=== PATIENT | female | born 1945 | race Caucasian/White ===

== ENCOUNTER → 2017-02-22 | Outpatient (CLI) | payer MEDICARE ==
--- NOTE | 2017-02-25 10:07 | MM ---
Reason for exam: screening (asymptomatic). Last mammogram was performed 1 year and 1 month ago. History: Patient is postmenopausal and history of other cancer. Excisional biopsy of the right breast, April 2007. Excisional biopsy of both breasts, 1969. Physical Findings: A clinical breast exam by your physician is recommended on an annual basis and results should be correlated with mammographic findings. MG Screening Mammo w CAD Bilateral CC and MLO view(s) were taken. XCCL view(s) were taken of the right breast. Prior study comparison: January 31, 2016, bilateral MG screening mammo w CAD. April 12, 2014, bilateral MG screening mammo w CAD. The breast tissue is heterogeneously dense. This may lower the sensitivity of mammography. Benign punctate and vascular calcifications. No significant changes when compared with prior studies. ASSESSMENT: Benign, BI-RAD 2 RECOMMENDATION: Routine screening mammogram of both breasts in 1 year.
== END | disposition home or self-care (01) ==
LOC: RADMAMWWP 15:01
PROVIDERS: ATTEND Internal Medicine
DX: Z12.31 Encounter for screening mammogram for malignant neoplasm of breast (principal)

== ENCOUNTER → 2017-03-26 | Outpatient (CLI) | payer MEDICARE ==
--- NOTE | 2017-03-27 01:45 | WWHP ---
[facility] - HISTORY AND PHYSICAL DATE OF SERVICE: 03/26/2017 Please have a copy sent to Dr. Esteban Gardner. CHIEF COMPLAINT: Patient is here for her routine gynecologic exam. HPI: This is a 71-year-old, G 3, P2-0-1-2 with an LMP of 1995. She is status post vaginal hysterectomy with bilateral salpingo-oophorectomy in 1995 for benign reasons. The patient is without gynecologic complaints. Her last pelvic exam was 1 year ago. PAST MEDICAL HISTORY: Atrial fibrillation and she is status post cardiac ablation and pacemaker placement. She also has elevated cholesterol osteopenia and von Willebrand's disease. She also has a history of skin cancer. Osteopenia. MEDS: 1. Eliquis 5 mg 2 daily. 2. Aspirin 81 mg daily. 3. Atorvastatin 10 mg, taken 3 times per week. 4. Estrace vaginal cream. Pea size amount to the vagina twice weekly. 5. Fish oil supplement daily. 6. Calcium 500 mg p.o. b.i.d. 7. Magnesium 250 mg daily. 8. Vitamin D 2000 units daily. 9. Calcium 99 mEq daily. 10.Vitamin E. 11.Vitamin C. 12.Vitamin B12 taken daily. 13.Acidophilus supplement daily. 14.Biotin supplement daily. ALLERGIES: SULFA WHICH CAUSES NAUSEA. PAST SURGICAL HISTORY: Tonsillectomy as a child. Breast biopsies, 1 from each breast in the past. Colonoscopy 2015 and this was her third one. PAST OB HISTORY: 2 vaginal deliveries and 1 spontaneous . 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 She has no history of STDs. SOCIAL HISTORY: She denies tobacco and drug use and has about 1 alcoholic drink every 3 months. She is a and is not sexually active. She goes to [place] during the winter months. FAMILY HISTORY: Mother had colon cancer. Father had lymphoma and several people had type 2 diabetes, including her mother brother and grandparents. REVIEW OF SYSTEMS: She denies respiratory or GI problems. Cardiac she has had some problems with atrial fibrillation. As above. She feels she has had some slight lightheadedness after her last pacemaker adjustment and she is following up with her divorce attorney for this. She denies maltreatment or falling. she states she does wear a pad because she occasionally has a small amount of urinary leakage but this is not a very big problem for her. PHYSICAL EXAM: Blood pressure 141/71, height 5 feet 8 inches, weight 128 pounds temperature 97.7, pulse is 70, this is a well-developed, well-nourished, white female, who is alert and oriented x3. In no acute distress. HEENT: Within normal limits. NECK: Supple without mass or thyromegaly. Chest. LUNGS: Clear to auscultation. HEART: Regular rate and rhythm. Breasts are without mass or discharge. Axillary exam is negative for adenopathy. Back negative for CVA tenderness. ABDOMEN: Soft, nontender, without palpable masses. Pelvic exam external genitalia reveals [id number] atrophy without lesions. Vagina reveals [id number] atrophy without lesions. There is no evidence of prolapse. Bimanual exam is negative for mass or tenderness. Rectovaginal exam is negative for mass or tenderness and is negative for occult blood. EXTREMITIES: Nontender. IMPRESSION: 1. 71-year-old, menopausal female, status post vaginal hysterectomy with BSO in the past for benign reasons. With normal gynecologic exam. 2. Mildly elevated blood pressure. PLAN: 1. Pap smears have been discontinued. 2. Self breast examination was discussed. 3. Mammogram was recently done on 02/22/2017 and was benign. She will repeat this in 1 year. 4. We have discussed elevated blood pressure. She states she will do home blood pressure checks and follow up with Dr. Gardner for blood pressure elevations. 5. She would like to continue Estrace vaginal cream for vaginal dryness which she will use up to 1-2 g intravaginally twice weekly. 6. She does get flu shots in the fall and will get this when available. 7. Osteoporosis prevention was discussed. She did show me a bone density test done on 03/21/2016 which showed osteopenia. She will plan on repeating this in [address] Gardner as she has done in the past. 8. She will return in 1 year. MMODL / IJN: [id number] / MTDNeo
== END | disposition home or self-care (01) ==
LOC: WWCWWP 10:14
PROVIDERS: ATTEND Obstetrics & Gynecology
DX: Z01.419 Encounter for gynecological examination (general) (routine) without abnormal findings (principal)

== ENCOUNTER → 2018-04-01 | Outpatient (CLI) | payer MEDICARE ==
[2018-04-01 10:18] VITALS: BP 120/75; PULSE 70; TEMP 97.9
--- NOTE | 2018-04-01 10:56 | P.HPOB ---
History of Present Illness H&P Date: 04/01/18 Chief Complaint: The patient is here for her routine gynecologic exam and mammogram. This is a 72 year old with an LMP of 1995. Patient is status post vaginal hysterectomy and BSO in 1995 for benign reasons. The patient is without gynecologic complaints. Review of Systems Weight has been stable. She denies respiratory, cardiac and G.I. problems. She denies maltreatment or problems with falling. : she denies any significant problems with urinary leakage, but does wear a small pad. Past Medical History Past Medical History: Atrial Fibrillation (Previous ablation and has a pacemaker ), Blood Disorder (HISTORY OF VON WILLEBRAND DISEASE,), Cancer (Skin cancer), Hyperlipidemia, Osteoarthritis (OA) Additional Past Medical History / Comment(s): osteopenia. 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 History of Any Multi-Drug Resistant Organisms: None Reported Past Surgical History: Heart Catheterization, Heart Catheterization With Stent, Pacemaker Past Anesthesia/Blood Transfusion Reactions: No Reported Reaction Date of Last Stent Placement:: JUL 2012 Type of Cardiac Device: Biventricular Pacemaker Device Placement Date:: march 2015 Past Psychological History: No Psychological Hx Reported Smoking Status: Never smoker Past Alcohol Use History: Rare (0-1 per month) Past Drug Use History: None Reported Additional History: She is a and is not sexually active. She goes to [place] during the winter months. - Past Family History Father Family Medical History: Cancer (Lymphoma) Mother Family Medical History: Cancer (colon), Diabetes Mellitus Brother(s) Family Medical History: Diabetes Mellitus Medications and Allergies Home Medications Medication Instructions Recorded Confirmed Type Aspirin 81 mg PO DAILY 01/19/14 01/19/15 History Atorvastatin Calcium [Lipitor] 10 mg PO DIRECTED 01/19/14 04/01/18 History Apixaban [Eliquis] 2.5 mg PO BID 01/18/15 04/01/18 History Ascorbic Acid [Vitamin C] 500 mg PO BID 01/18/15 01/19/15 History Calcium Carbonate [Calcium] 600 mg PO BID 01/18/15 01/19/15 History Cholecalciferol [Vitamin D3] 2,000 unit PO DAILY@1200 01/18/15 04/01/18 History Magnesium Gluconate [Magonate] 500 mg PO DAILY 01/18/15 04/01/18 History [place]-3 Fatty Acids/Fish Oil [Fish 1 each PO BID 01/18/15 04/01/18 History Oil 1,000 mg Softgel] Vitamin E 500 mg PO ONCE 01/18/15 04/01/18 History Allergies Allergy/AdvReac Type Severity Reaction Status Date / Time denosumab [From Prolia] AdvReac Nausea & Verified 04/01/18 10:45 Vomiting Sulfa (Sulfonamide AdvReac Nausea & Verified 04/01/18 10:45 Antibiotics) Vomiting Exam Vital Signs Temp Pulse BP 04/01/18 10:10 97.9 F 70 120/75 Height 5'8", weight 130 pounds, BMI 20 This is a well-developed well-nourished white female who is alert and oriented times 3 in no acute distress. HEENT: Within normal limits. NECK: Supple without mass or thyromegaly. CHEST AND LUNGS: Clear to auscultation. HEART: Regular rate and rhythm. BREASTS: Are without mass or discharge. AXILLARY EXAM: Negative for adenopathy. BACK: Negative for CVA tenderness. ABDOMEN: Soft, nontender, without palpable masses. PELVIC EXAM: External genitalia appears normal with mild to moderate atrophy. Vagina appears normal with mild to moderate atrophy. There is no evidence of prolapse. Bimanual examination is negative for mass or tenderness. RECTAL EXAM: Rectovaginal exam is negative for mass or tenderness and is negative for occult blood. EXTREMITIES: Nontender. IMPRESSION: 1. 72-year-old menopausal female status post vaginal hysterectomy and BSO for benign reasons. 2. History of osteopenia. PLAN: 1. Pap smears have been discontinued. 2. Self breast awareness was discussed with the patient. 3. Screening mammogram will be done today. 4. Osteoporosis prevention was discussed. 5. She continues to use Estrace vaginal cream to the introitus. She will use up to 1 g twice weekly. The prescription will be sent to [facility] pharmacy in [place]. 6. She is to get her flu shot in the near future. 7. She will return one year.
--- NOTE | 2018-04-01 15:15 | BD ---
EXAMINATION TYPE: Axial Bone Density DATE OF EXAM: 04/01/2018 COMPARISON:2000 CLINICAL HISTORY: post menopausal, Z 78.0 Height: 5 '7 1/2 Weight: 129 FRAX RISK QUESTIONS: Secondary Osteoporosis: RISK FACTORS HISTORY OF: Family History of Osteoporosis: y Postmenopausal woman: y MEDICATIONS: Additional Medications: blood thinner, pacemaker, aspirin, cholesterol Additional History: EXAM MEASUREMENTS: Bone mineral densitometry was performed using the [employer] System. Bone mineral density as measured about the Lumbar spine is: ----- L1-L4(G/cm2): 1.161 T Score Values are as follows: ----- L2: -0.7 ----- L3: 0.1 ----- L4: 0.4 ----- L1-L4: -0.2 Bone mineral density has: Decreased -10.1% since study of: Bone mineral density about the R hip (g/cm2): 0.674 Bone mineral density about the L hip (g/cm2): 0.784 T Score values are as follows: -----R Neck: -2.6 -----L Neck: -1.8 -----R Total: -2.2 -----L Total: -1.4 Bone mineral density has: Decreased -9.6% since study of: 12/02/2000 IMPRESSION: Osteoporosis (T Score less than -2.5). There is increased fracture risk and therapy is usually indicated based on age. Re-Screen 1-2 years. NOTE: T-SCORE=SD OF THE YOUNG ADULT MEAN.
--- NOTE | 2018-04-02 11:56 | MM ---
Reason for exam: screening (asymptomatic). Last mammogram was performed 1 year and 1 month ago. History: Patient is postmenopausal and history of other cancer. Excisional biopsy of the right breast, April 2007. Excisional biopsy of both breasts, 1969. Physical Findings: A clinical breast exam by your physician is recommended on an annual basis and results should be correlated with mammographic findings. MG Screening Mammo w CAD Bilateral CC, MLO, and XCCL view(s) were taken. Prior study comparison: February 22, 2017, bilateral MG screening mammo w CAD. January 31, 2016, bilateral MG screening mammo w CAD. The breast tissue is heterogeneously dense. This may lower the sensitivity of mammography. There are benign appearing vascular calcifications bilaterally and benign round calcifications in the right breast. There is no discrete abnormality. ASSESSMENT: Benign, BI-RAD 2 RECOMMENDATION: Routine screening mammogram of both breasts in 1 year.
--- NOTE | 2018-04-08 07:52 | P.PN ---
Progress Note - Text Progress Note Date: 04/08/18 The patient called on 04/04/2018. She requested that her prescription be changed from Estrace vaginal cream to Premarin vaginal cream because of her insurance coverage. This change was sent electronically to [facility] pharmacy in [place]. The prescriptions for Premarin vaginal cream, one tube, 1 g vaginally twice weekly. 3 refills were given.
--- NOTE | 2018-04-09 10:20 | P.PN ---
Progress Note - Text Progress Note Date: 04/09/18 OUTPATIENT FOLLOW-UP NOTE TEST(S)/RESULTS: bone density test from 04/01/2018 shows osteoporosis of the right hip with a T score of -2.6. METHOD OF NOTIFICATION: patient was notified by phone. PATIENT COMMENTS: the patient understands the results. In his unsure if she would want to start medication for this at this time. DIAGNOSIS: osteoporosis DISCUSSION: we've had a long discussion regarding osteoporosis and the increased risk for fracture. We discussed pharmaceutical options including bisphosphonates, Evista, and Prolia. She took Prolia in the past and she states it made her sick for 2 months. We discussed pros and cons of bisphosphonates including possible increased risk for esophageal ulcers and osteonecrosis of the jaw with dental or jaw surgery. We also discussed possible increased risk of atypical femur fractures. We discussed possible increased risk for blood clots with Evista. After long discussion, I do think she would be a good candidate for Fosamax. Information on Fosamax, the ACOG handout on osteoporosisFAQ 048 and a copy of the bone density tests will be sent to the patient. PLAN: the patient will call if she has any questions. She would like to proceed with Fosamax, we will obtain a blood creatinine and serum calcium level , if not already done by Dr. Gardner.
== END ==
LOC: WWCWWP 09:49
PROVIDERS: ATTEND Obstetrics & Gynecology
DX: Z12.31 Encounter for screening mammogram for malignant neoplasm of breast (principal); M81.0 Age-related osteoporosis without current pathological fracture; Z78.0 Asymptomatic menopausal state
CPT/HCPCS: 77067; 77080

== ENCOUNTER → 2019-04-07 | Outpatient (CLI) | payer MEDICARE ==
[2019-04-07 08:46] VITALS: BP 151/86; PULSE 71; RESP 18; TEMP 97.9
--- NOTE | 2019-04-07 09:36 | P.HPOB ---
History of Present Illness H&P Date: 04/07/19 Chief Complaint: The patient is here for her routine gynecologic exam and ma mmogram. This is a 73 year old with an LMP of 1995. The patient is status post vaginal hysterectomy with BSO in 1995 for benign reasons. The patient states she has been noticing some right breast pressure without palpable mass. She denies any nipple leakage. Last year she was found to have osteoporosis in the hip and was offered medication to help strengthen bones. After reading info rmation about the medication, she has chosen to go without the medication. She has been using Happy PMS cream and had a trial off of it earlier this year, but she started having hot flashes so she started it again with improvement of her symptoms. She also had a trial off of estrogen cream which she has used to the vulva area and she started noticing more irritation, so she restarted the cream. She is not sexually active. Review of Systems Her weight has been stable. She denies respiratory, cardiac and G.I. problems. She denies maltreatment or problems with falling. : occasional small leakage requiring a pad, but this is not a big problem for her. Past Medical History Past Medical History: Atrial Fibrillation, Blood Disorder, Cancer, Hyperlipidemia, Osteoarthritis (OA) Additional Past Medical History / Comment(s): She has a pacemaker. History of von Willebrand's disease. Skin cancer. Osteoporosis. 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 History of Any Multi-Drug Resistant Organisms: None Reported Past Surgical History: Heart Catheterization, Heart Catheterization With Stent, Pacemaker Additional Past Surgical History / Comment(s): Colonoscopy 2012(3rd) Past Anesthesia/Blood Transfusion Reactions: No Reported Reaction Date of Last Stent Placement:: JUL 2012 Type of Cardiac Device: Biventricular Pacemaker Device Placement Date:: march 2015 Past Psychological History: No Psychological Hx Reported Smoking Status: Never smoker Past Alcohol Use History: Rare (2 or 3 per year) Past Drug Use History: None Reported Additional History: She is a and is not sexually active. She goes to [place] during the winter months. - Past Family History Father Family Medical History: Cancer Additional Family Medical History / Comment(s): Lymphoma. Mother Family Medical History: Cancer, Diabetes Mellitus Additional Family Medical History / Comment(s): Colon cancer. Brother(s) Family Medical History: Diabetes Mellitus Medications and Allergies Home Medications Medication Instructions Recorded Confirmed Type Aspirin 81 mg PO DAILY 01/19/14 04/07/19 History Atorvastatin Calcium [Lipitor] 10 mg PO DIRECTED 01/19/14 04/07/19 History Apixaban [Eliquis] 2.5 mg PO BID 01/18/15 04/07/19 History Ascorbic Acid [Vitamin C] 500 mg PO BID 01/18/15 04/07/19 History Calcium Carbonate [Calcium] 600 mg PO BID 01/18/15 04/07/19 History Cholecalciferol [Vitamin D3 (25 2,000 unit PO DAILY@1200 01/18/15 04/07/19 History Mcg = 1000 Iu)] Magnesium Gluconate [Magonate] 500 mg PO DAILY 01/18/15 04/07/19 History [place]-3 Fatty Acids/Fish Oil [Fish 1 each PO BID 01/18/15 04/07/19 History Oil 1,000 mg Softgel] Vitamin E 500 mg PO ONCE 01/18/15 04/07/19 History Estradiol Cream [Estrace Cream 1 gm VAGINAL DIRECTED #1 tube 04/08/1803/16 Rx 0.01%] Cyanocobalamin/Cobamamide [Vitamin 1 each SL DAILY 04/07/19 04/07/19 History B-12 5,000 Mcg Tab Sl] Ferrous Sulfate [Iron] 325 mg PO MOWEFR 04/07/19 04/07/19 History Happy Pms Cream 1 cream TOPICAL DAILY 04/07/19 04/07/19 History Potassium 99 mg PO DAILY 04/07/19 04/07/19 History Ubidecarenone [Co Q-10] 100 mg PO DAILY 04/07/19 04/07/19 History Allergies Allergy/AdvReac Type Severity Reaction Status Date / Time denosumab [From Prolia] AdvReac Nausea & Verified 04/07/19 08:46 Vomiting Sulfa (Sulfonamide AdvReac Nausea & Verified 04/07/19 08:46 Antibiotics) Vomiting Exam Vital Signs Temp Pulse Resp BP Pulse Ox 04/07/19 08:36 97.9 F 71 18 151/86 98 Intake and Output 04/06/19 04/07/19 04/07/19 22:59 06:59 14:59 Other: Weight 59.874 kg Height 5'8", weight 132 pounds, BMI 20.1. This is a well-developed well-nourished white female who is alert and oriented times 3 in no acute distress. HEENT: Within normal limits. NECK: Supple without mass or thyromegaly. CHEST AND LUNGS: Clear to auscultation. HEART: Regular rate and rhythm. BREASTS: Are without mass or discharge. The breasts are nontender at this time. AXILLARY EXAM: Negative for adenopathy. BACK: Negative for CVA tenderness. ABDOMEN: Soft, nontender, without palpable masses. PELVIC EXAM: External genitalia appears normal with mild to moderate atrophy. Vagina appears normal with mild to moderate atrophy. There is no evidence of prolapse. Bimanual examination is negative for mass or tenderness. RECTAL EXAM: Rectovaginal exam is negative for mass or tenderness and is negative for occult blood. EXTREMITIES: Nontender. IMPRESSION: 1. 73 year old menopausal females who is status post vaginal hysterectomy with BSO for benign reasons. Normal gynecologic exam. 2. Osteoporosis declining prescription medication. 3. Genital atrophy with irritation that was improved with Estrace vaginal cream. PLAN: 1. Pap smears have been discontinued. 2. Self breast awareness was discussed with the patient. 3. Screening mammogram will be done today. 4. Osteoporosis management was discussed. I have stressed the importance of adequate calcium, vitamin D and regular exercise. Recommended amounts of calcium and vitamin D were also discussed. We again have discussed medications which she is declining at this time. We will plan on repeating bone density testing in one year. 5. Continue Estrace vaginal cream to the genital region. The electronic prescription will be sent to [facility] pharmacy in [facility]. 6. She plans to get a flu shot in the near future. 7. She was advised to return in one year for her annual well woman exam.
--- NOTE | 2019-04-07 10:34 | MM ---
Reason for exam: additional evaluation requested from prior study. Last mammogram was performed 1 year ago. History: Patient is postmenopausal and history of other cancer. Excisional biopsy of the right breast, April 2007. Excisional biopsy of both breasts, 1969. Took estrogen for 12 years beginning at age 52. Physical Findings: Dr. Murray did breast exam. MG 3D Diag Mammo W/Cad JESSI Bilateral CC and MLO view(s) were taken. LM, spot compression MLO, and spot compression CC view(s) were taken of the left breast. Prior study comparison: April 01, 2018, bilateral MG screening mammo w CAD. February 22, 2017, bilateral MG screening mammo w CAD. The breast tissue is heterogeneously dense. This may lower the sensitivity of mammography. 5mm left upper outer quadrant focal asymmetry 1.5-2cm from nipple, on spot compression views this resolves and appears as fibroglandular tissue. These results were verbally communicated with the patient and result sheet given to the patient on 04/07/19. ASSESSMENT: Benign, BI-RAD 2 RECOMMENDATION: Routine screening mammogram of both breasts in 1 year. Manage on a clinical basis with regard to intermittent left breast nonfocal pain.
== END | disposition home or self-care (01) ==
LOC: WWCWWP 08:24
PROVIDERS: ATTEND Obstetrics & Gynecology
DX: N64.4 Mastodynia (principal); Z90.710 Acquired absence of both cervix and uterus
CPT/HCPCS: 77066; G0279; 77062

== ENCOUNTER → 2020-03-31 | Outpatient (CLI) | payer MEDICARE ==
--- NOTE | 2020-03-31 13:35 | BD ---
EXAMINATION TYPE: Axial Bone Density DATE OF EXAM: 03/31/2020 COMPARISON: 04.01.2018 CLINICAL HISTORY: 74 YR OLD FEMALE......ICD-10 CODE: Z78.0 POST MENOPAUSAL Height: 66.4 Weight: 130 FRAX RISK QUESTIONS: NOTHING ADDITIONAL TO NOTE HERE RISK FACTORS HISTORY OF: Active: YES Postmenopausal woman: YES, AT 52 YR OLD Take estrogen and/or progesterone medications: NOT FOR LAST 10 YRS, TOOK IN PAST FOR ABOUT 15 YRS Lost more than 2 inches in height since high school: YES, CLAIMS 69" IN PAST Hyperparathyroidism: NO Adrenal Insufficiency: NO MEDICATIONS: Osteoporosis Medications: TRIED PROLIA, UNABLE TO TAKE Additional Medications: BP MEDS, STATIN FOR CHOLESTEROL, VIT D AND CALCIUM Additional History: HYPERTENSION CHOLESTEROL EXAM MEASUREMENTS: Bone mineral densitometry was performed using the [employer] System. Bone mineral density as measured about the Lumbar spine is: ----- L1-L4(G/cm2): 1.167 T Score Values are as follows: ----- L1: -1.0 ----- L2: -0.8 ----- L3: 0.4 ----- L4: 0.5 ----- L1-L4: -0.1 Bone mineral density has: Increased 1.1% since study of: 04.01.2018 Bone mineral density about the R hip (g/cm2): 0.718 Bone mineral density about the L hip (g/cm2): 0.793 T Score values are as follows: -----R Neck: -2.7 -----L Neck: -1.7 -----R Total: -2.3 -----L Total: -1.7 Bone mineral density has: Decreased -3.8% since study of: 04.01.2018 FRAX%s: THERE IS A 17.0% CHANCE FOR A MAJOR OSTEOPOROTIC FX AND A 6.3% FOR HIP....PROBABILITY FOR F X IN 10 YRS TIME IMPRESSION: Osteopenia NOTE: T-SCORE=SD OF THE YOUNG ADULT MEAN.
== END | disposition home or self-care (01) ==
LOC: RADBDWWP 12:25
PROVIDERS: ATTEND Obstetrics & Gynecology
DX: M85.80 Other specified disorders of bone density and structure, unspecified site (principal); Z78.0 Asymptomatic menopausal state
CPT/HCPCS: 77080

== ENCOUNTER → 2020-04-13 | Outpatient (CLI) | payer MEDICARE ==
[2020-04-13 09:40] VITALS: BP 136/83; PULSE 68; RESP 18; TEMP 98.3
--- NOTE | 2020-04-13 10:53 | P.HPOB ---
History of Present Illness H&P Date: 04/13/20 Chief Complaint: The patient is here for her routine gynecologic exam and ma mmogram. This is a 74-year-old 011 with an LMP of 1995. The patient is status post vaginal hysterectomy with BSO in 1995 for benign reasons. The patient still has some occasional hot flashes and night sweats but is tolerable. The patient had a recent bone density test earlier this month showing osteopenia and she is interested in starting medication for this. She is without other complaints. Review of Systems Weight has been stable. She denies respiratory, cardiac and G.I. problems. She denies maltreatment or problems with falling. : She has an occasional slight leakage and does wear a panty liner because of this. This is not a major problem for her. Past Medical History Past Medical History: Atrial Fibrillation, Blood Disorder, Cancer, Hyperlipidemia, Osteoarthritis (OA) Additional Past Medical History / Comment(s): She has a pacemaker. History of von Willebrand's disease. Skin cancer. Osteoporosis. 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 History of Any Multi-Drug Resistant Organisms: None Reported Past Surgical History: Heart Catheterization, Heart Catheterization With Stent, Pacemaker Additional Past Surgical History / Comment(s): Colonoscopy 2019 for GI bleed (negative). Past Anesthesia/Blood Transfusion Reactions: No Reported Reaction Date of Last Stent Placement:: JUL 2012 Type of Cardiac Device: Biventricular Pacemaker Device Placement Date:: march 2015 Past Psychological History: No Psychological Hx Reported Smoking Status: Never smoker Past Alcohol Use History: Rare (2 or 3 per year) Past Drug Use History: None Reported Additional History: She is a and is not seeing anybody at this time and is not sexually active. She goes to [place] during the winter. - Past Family History Father Family Medical History: Cancer Additional Family Medical History / Comment(s): Lymphoma. Mother Family Medical History: Cancer, Diabetes Mellitus Additional Family Medical History / Comment(s): Colon cancer. Brother(s) Family Medical History: Diabetes Mellitus Medications and Allergies Home Medications Medication Instructions Recorded Confirmed Type Aspirin 81 mg PO DAILY 01/19/14 04/13/20 History Atorvastatin Calcium [Lipitor] 10 mg PO DIRECTED 01/19/14 04/13/20 History Ascorbic Acid [Vitamin C] 500 mg PO BID 01/18/15 04/13/20 History Calcium Carbonate [Calcium] 600 mg PO BID 01/18/15 04/13/20 History Cholecalciferol [Vitamin D3 (25 2,000 unit PO DAILY@1200 01/18/15 04/13/20 History Mcg = 1000 Iu)] Magnesium Gluconate [Magonate] 500 mg PO DAILY 01/18/15 04/13/20 History [place]-3 Fatty Acids/Fish Oil [Fish 1 each PO BID 01/18/15 04/13/20 History Oil 1,000 mg Softgel] Vitamin E 500 mg PO ONCE 01/18/15 04/13/20 History Cyanocobalamin/Cobamamide [Vitamin 1 each SL DAILY 04/07/19 04/13/20 History B-12 5,000 Mcg Tab Sl] Estradiol Cream [Estrace Cream 1 gm VAGINAL DIRECTED #1 tube 04/07/19 04/13/20 Rx 0.01%] Happy Pms Cream 1 cream TOPICAL DAILY 04/07/19 04/13/20 History Potassium 99 mg PO DAILY 04/07/19 04/13/20 History Ubidecarenone [Co Q-10] 100 mg PO DAILY 04/07/19 04/13/20 History Biotin 5,000 mcg PO DAILY 04/13/20 04/13/20 History Zinc 50 mg PO DAILY 04/13/20 04/13/20 History amLODIPine BESYLATE [Norvasc] 2.5 mg PO DAILY 04/13/20 04/13/20 History Allergies Allergy/AdvReac Type Severity Reaction Status Date / Time denosumab [From Prolia] AdvReac Nausea & Verified 04/13/20 09:25 Vomiting Sulfa (Sulfonamide AdvReac Nausea & Verified 04/13/20 09:25 Antibiotics) Vomiting Exam Vital Signs Temp Pulse Resp BP Pulse Ox 04/13/20 09:35 98.3 F 68 18 136/83 98 Intake and Output 04/12/20 04/13/20 04/13/20 22:59 06:59 14:59 Other: Weight 60.328 kg Height 5 feet 8 inches, weight 133 pounds, BMI 20.2. This is a well-developed well-nourished white female who is alert and oriented times 3 in no acute distress. HEENT: Within normal limits. NECK: Supple without mass or thyromegaly. CHEST AND LUNGS: Clear to auscultation. HEART: Regular rate and rhythm. BREASTS: Are without mass or discharge. AXILLARY EXAM: Negative for adenopathy. BACK: Negative for CVA tenderness. ABDOMEN: Soft, nontender, without palpable masses. PELVIC EXAM: External genitalia appears normal with mild to moderate atrophy. Vagina appears normal with mild to moderate atrophy. There is no evidence of prolapse. Bimanual examination is negative for mass or tenderness. RECTAL EXAM: Rectovaginal exam is negative for mass or tenderness and is negative for occult blood. EXTREMITIES: Nontender. IMPRESSION: 1. 74-year-old menopausal female status post vaginal hysterectomy with BSO with normal gynecologic exam. 2. History of osteoporosis PLAN: 1. Pap smears have been discontinued. 2. Self breast awareness was discussed with the patient. 3. Screening mammogram will be done today. 4. Osteoporosis management was discussed. I have stressed the importance of adequate calcium, vitamin D and regular exercise. Recommended amounts of calcium and vitamin D were also discussed. After reviewing her bone density testing from 03/31/2020, she would like to proceed with medication for osteoporosis. We have again reviewed possible risks including osteonecrosis of the jaw. She states she does not have any upcoming oral surgery or jaw surgery. We have discussed how to take the medication and she understands she should read instructions prior to taking it. She recently had blood screening test done through her PCP. She will see if a serum creatinine and serum calcium were drawn. She will have this sent to me. If it was not drawn she will call and I can order it for her. If these are normal, she will be started on Fosamax 70 mg by mouth every week. 5. The patient was advised to return in 1-2 years for her well woman examination.
--- NOTE | 2020-04-14 11:01 | MM ---
Reason for exam: screening (asymptomatic). Last mammogram was performed 1 year ago. History: Patient is postmenopausal and history of other cancer. Excisional biopsy of the right breast, April 2007. Excisional biopsy of both breasts, 1969. Took estrogen for 12 years beginning at age 52. Physical Findings: A clinical breast exam by your physician is recommended on an annual basis and results should be correlated with mammographic findings. MG 3D Screening Mammo W/Cad Bilateral CC and MLO view(s) were taken. XCCL view(s) were taken of the right breast. Prior study comparison: April 07, 2019, bilateral MG 3d diag mammo w/cad JESSI. April 01, 2018, bilateral MG screening mammo w CAD. The breast tissue is heterogeneously dense. This may lower the sensitivity of mammography. Stable benign calcifications. There is no discrete abnormality. No significant changes when compared with prior studies. ASSESSMENT: Benign, BI-RAD 2 RECOMMENDATION: Routine screening mammogram of both breasts in 1 year.
== END | disposition home or self-care (01) ==
LOC: WWCWWP 09:17
PROVIDERS: ATTEND Obstetrics & Gynecology
DX: Z12.31 Encounter for screening mammogram for malignant neoplasm of breast (principal)
CPT/HCPCS: 77063; 77067

== ENCOUNTER 2022-01-10 11:51 | Emergency (ER) | payer MEDICARE ==
[2022-01-10 12:00] VITALS: PULSE 70; RESP 18; TEMP 98.1
[2022-01-10 12:50] LABS: Basophils % (A) 0 %; Eosinophils % (A) 1 %; HCT 41.1 % (34.0-46.0); HGB 13.4 gm/dL (11.4-16.0); Lymphocytes # (A) 0.8 k/uL (1.0-4.8); Lymphocytes % (A) 12 %; MCH 31.5 pg (25.0-35.0); MCHC 32.5 g/dL (31.0-37.0); Mean Platelet Volume 9.1; Monocytes # (A) 0.3 k/uL (0-1.0); Monocytes % (A) 5 %; Neutrophils # (A) 4.9 k/uL (1.3-7.7); Neutrophils % (A) 79 %; Platelet Count 108 k/uL (150-450); RBC 4.23 m/uL (3.80-5.40); RDW 12.8 % (11.5-15.5); WBC 6.2 k/uL (3.8-10.6)
--- NOTE | 2022-01-10 12:52 | ED ---
General Adult HPI - General Chief complaint: Arrhythmia/Palpitations Stated complaint: Abnormal EKG Time Seen by Provider: 01/10/22 11:59 Source: patient, RN notes reviewed, old records reviewed Mode of arrival: ambulatory Limitations: no limitations - History of Present Illness Initial comments: 76-year-old female who presents for evaluation of palpitation. Patient had been seen for health visit with her primary care provider and had indicated that she had had some palpitations over the past one week. EKG was performed and the patient was sent to the emergency department for evaluation. She has history of atrial fibrillation status post ablation and pacemaker placement. She is currently on atorvastatin and amlodipine. She denies associated chest pain. Denies cough or fever. Denies abdominal pain. She states the palpitations are intermittent. - Related Data Home Medications Medication Instructions Recorded Confirmed Aspirin 81 mg PO DAILY 01/19/14 04/13/20 Atorvastatin Calcium [Lipitor] 10 mg PO DIRECTED 01/19/14 04/13/20 Ascorbic Acid [Vitamin C] 500 mg PO BID 01/18/15 04/13/20 Calcium Carbonate [Calcium] 600 mg PO BID 01/18/15 04/13/20 Cholecalciferol [Vitamin D3 (25 2,000 unit PO DAILY@1200 01/18/15 04/13/20 Mcg = 1000 Iu)] Magnesium Gluconate [Magonate] 500 mg PO DAILY 01/18/15 04/13/20 [place]-3 Fatty Acids/Fish Oil [Fish 1 each PO BID 01/18/15 04/13/20 Oil 1,000 mg Softgel] Vitamin E (Dl,Tocopheryl Acet) 500 mg PO ONCE 01/18/15 04/13/20 [Vitamin E] Cyanocobalamin/Cobamamide [Vitamin 1 each SL DAILY 04/07/19 04/13/20 B-12 5,000 Mcg Tab Sl] Happy Pms Cream 1 cream TOPICAL DAILY 04/07/19 04/13/20 Potassium 99 mg PO DAILY 04/07/19 04/13/20 Ubidecarenone [Co Q-10] 100 mg PO DAILY 04/07/19 04/13/20 Biotin [Biotin Disolve] 5,000 mcg PO DAILY 04/13/20 04/13/20 Zinc 50 mg PO DAILY 04/13/20 04/13/20 amLODIPine BESYLATE [Norvasc] 2.5 mg PO DAILY 04/13/20 04/13/20 Previous Rx's Medication Instructions Recorded Estradiol Cream [Estrace Cream 1 gm VAGINAL DIRECTED #1 tube 04/07/19 0.01%] Alendronate Sodium 70 mg PO WEEKLY #12 tab 04/27/20 Allergies Allergy/AdvReac Type Severity Reaction Status Date / Time denosumab [From Prolia] AdvReac Nausea & Verified 01/10/22 13:40 Vomiting Sulfa (Sulfonamide AdvReac Nausea & Verified 01/10/22 13:40 Antibiotics) Vomiting Review of Systems ROS Statement: Those systems with pertinent positive or pertinent negative responses have been documented in the HPI. ROS Other: All systems not noted in ROS Statement are negative. Past Medical History Past Medical History: Atrial Fibrillation, Blood Disorder, Cancer, Hyperlipidemia, Osteoarthritis (OA) Additional Past Medical History / Comment(s): She has a pacemaker. History of von Willebrand's disease. Skin cancer. Osteoporosis. 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 History of Any Multi-Drug Resistant Organisms: None Reported Past Surgical History: Heart Catheterization, Heart Catheterization With Stent, Pacemaker Additional Past Surgical History / Comment(s): Colonoscopy 2019 for GI bleed (negative). Past Anesthesia/Blood Transfusion Reactions: No Reported Reaction Date of Last Stent Placement:: JUL 2012 Type of Cardiac Device: Biventricular Pacemaker Device Placement Date:: march 2015 Past Psychological History: No Psychological Hx Reported Smoking Status: Never smoker Past Alcohol Use History: Rare Past Drug Use History: None Reported - Past Family History Father Family Medical History: Cancer Additional Family Medical History / Comment(s): Lymphoma. Mother Family Medical History: Cancer, Diabetes Mellitus Additional Family Medical History / Comment(s): Colon cancer. Brother(s) Family Medical History: Diabetes Mellitus General Exam Limitations: no limitations General appearance: alert, in no apparent distress Head exam: Present: atraumatic, normocephalic Eye exam: Present: normal appearance, PERRL ENT exam: Present: normal exam Neck exam: Present: normal inspection. Absent: tenderness, meningismus Respiratory exam: Present: normal lung sounds bilaterally. Absent: respiratory distress, wheezes Cardiovascular Exam: Present: regular rate, normal rhythm GI/Abdominal exam: Present: soft. Absent: distended, tenderness, guarding Extremities exam: Present: normal inspection, normal capillary refill. Absent: pedal edema, joint swelling, calf tenderness Neurological exam: Present: alert, oriented X3, CN II-XII intact. Absent: motor sensory deficit Psychiatric exam: Present: normal affect, normal mood Skin exam: Present: warm, dry, intact. Absent: cyanosis, diaphoretic Course Vital Signs 01/10/22 11:54 Temperature 98.1 F Pulse Rate 70 Respiratory 18 Rate Blood Pressure 144/82 O2 Sat by Pulse 99 Oximetry EKG Findings - EKG Comments: EKG Findings:: Electronic paced rhythm rate of 70, [place] interval 198, QRS duration 165, QTC 480 Medical Decision Making - Medical Decision Making 68-year-old female presents for evaluation of palpitation. Patient was sent in by primary care physician for evaluation. She has history of atrial fibrillation status post pacemaker. She states she is in a paced rhythm 100% of the time. Spent about 7 years since she has had her current pacemaker in. She denies associated chest pain. No cough or dyspnea. Palpitations are intermittent. While in the emergency department she did have a witnessed PVC although this was not captured on EKG. EKG shows dual-chamber pacemaker. Vital signs are stable emergency prompt. She hasn't normal CBC with the exception of a mild frontal cytopenia. She has normal electrolytes. Negative troponin. Chest x-ray is clear. 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 Stable For discharge - Lab Data Result diagrams: 01/10/22 12:36 01/10/22 12:36 Lab Results 01/10/22 01/10/22 01/10/22 Range/Units 12:36 12:36 12:36 WBC 6.2 (3.8-10.6) k/uL RBC 4.23 (3.80-5.40) m/uL Hgb 13.4 (11.4-16.0) gm/dL Hct 41.1 (34.0-46.0) % MCV 97.0 (80.0-100.0) fL MCH 31.5 (25.0-35.0) pg MCHC 32.5 (31.0-37.0) g/dL RDW 12.8 (11.5-15.5) % Plt Count 108 L (150-450) k/uL MPV 9.1 Neutrophils % 79 % Lymphocytes % 12 % Monocytes % 5 % Eosinophils % 1 % Basophils % 0 % Neutrophils # 4.9 (1.3-7.7) k/uL Lymphocytes # 0.8 L (1.0-4.8) k/uL Monocytes # 0.3 (0-1.0) k/uL Eosinophils # 0.0 (0-0.7) k/uL Basophils # 0.0 (0-0.2) k/uL PT 10.7 (9.0-12.0) sec INR 1.0 (<1.2) APTT 25.3 (22.0-30.0) sec Sodium 140 (137-145) mmol/L Potassium 3.7 (3.5-5.1) mmol/L Chloride 104 (98-107) mmol/L Carbon Dioxide 29 (22-30) mmol/L Anion Gap 7 mmol/L BUN 16 (7-17) mg/dL Creatinine 0.79 (0.52-1.04) mg/dL Est GFR (CKD-EPI)AfAm 84 (>60 ml/min/1.73 sqM) Est GFR (CKD-EPI)NonAf 73 (>60 ml/min/1.73 sqM) Glucose 99 (74-99) mg/dL Calcium 9.3 (8.4-10.2) mg/dL Magnesium 2.2 (1.6-2.3) mg/dL Total Bilirubin 0.5 (0.2-1.3) mg/dL AST 36 (14-36) U/L ALT 23 (4-34) U/L Alkaline Phosphatase 91 (38-126) U/L Troponin I (0.000-0.034) ng/mL Total Protein 7.3 (6.3-8.2) g/dL Albumin 4.5 (3.5-5.0) g/dL 01/10/22 Range/Units 12:36 WBC (3.8-10.6) k/uL RBC (3.80-5.40) m/uL Hgb (11.4-16.0) gm/dL Hct (34.0-46.0) % MCV (80.0-100.0) fL MCH (25.0-35.0) pg MCHC (31.0-37.0) g/dL RDW (11.5-15.5) % Plt Count (150-450) k/uL MPV Neutrophils % % Lymphocytes % % Monocytes % % Eosinophils % % Basophils % % Neutrophils # (1.3-7.7) k/uL Lymphocytes # (1.0-4.8) k/uL Monocytes # (0-1.0) k/uL Eosinophils # (0-0.7) k/uL Basophils # (0-0.2) k/uL PT (9.0-12.0) sec INR (<1.2) APTT (22.0-30.0) sec Sodium (137-145) mmol/L Potassium (3.5-5.1) mmol/L Chloride (98-107) mmol/L Carbon Dioxide (22-30) mmol/L Anion Gap mmol/L BUN (7-17) mg/dL Creatinine (0.52-1.04) mg/dL Est GFR (CKD-EPI)AfAm (>60 ml/min/1.73 sqM) Est GFR (CKD-EPI)NonAf (>60 ml/min/1.73 sqM) Glucose (74-99) mg/dL Calcium (8.4-10.2) mg/dL Magnesium (1.6-2.3) mg/dL Total Bilirubin (0.2-1.3) mg/dL AST (14-36) U/L ALT (4-34) U/L Alkaline Phosphatase (38-126) U/L Troponin I <0.012 (0.000-0.034) ng/mL Total Protein (6.3-8.2) g/dL Albumin (3.5-5.0) g/dL Disposition Clinical Impression: Palpitations Disposition: HOME SELF-CARE Condition: Good Instructions (If sedation given, give patient instructions): Heart Palpitations (ED) Is patient prescribed a controlled substance at d/c from ED?: No Referrals: Keyur Ling MD [Primary Care Provider] - 1-2 days Milton Foy MD [STAFF PHYSICIAN] - 1-2 days Clyde Anderson MD [STAFF PHYSICIAN] - 1-2 days Time of Disposition: 13:51
[2022-01-10 13:00] LABS: Partial Thromboplastin Time 25.3 sec (22.0-30.0); Prothrombin Time 10.7 sec (9.0-12.0)
[2022-01-10 13:01] LABS: Albumin 4.5 g/dL (3.5-5.0); Calcium 9.3 mg/dL (8.4-10.2); Magnesium 2.2 mg/dL (1.6-2.3); Potassium 3.7 mmol/L (3.5-5.1); Total Bilirubin 0.5 mg/dL (0.2-1.3); Total Protein 7.3 g/dL (6.3-8.2)
--- NOTE | 2022-01-10 13:17 | XR ---
EXAMINATION TYPE: XR chest 2V DATE OF EXAM: 01/10/2022 COMPARISON: X-ray dated 01/19/2015 HISTORY: Dysrhythmia TECHNIQUE: Frontal and lateral views of the chest are obtained. FINDINGS: Hyperinflated hyper-translucent lungs suggesting COPD. Bilateral mid to lower lung zone subcentimeter nodular densities, likely representing nipple shadows. No cruz area of pulmonary consolidation. Bilateral apical pulmonary fibrotic changes. No sizable pleural effusion or pneumothorax. Unchanged c ardiomediastinal silhouette and bony thoracic cage. Left upper chest wall dual lead pacemaker. Aortic atherosclerotic calcifications. IMPRESSION: COPD changes and other findings as described above.
[2022-01-10 14:06] VITALS: BP 145/93
== END 2022-01-10 14:02 | disposition home or self-care (01) ==
LOC: EC 11:51
DX: R00.2 Palpitations (principal); E78.5 Hyperlipidemia, unspecified; Z88.4 Allergy status to anesthetic agent; Z88.2 Allergy status to sulfonamides
CPT/HCPCS: 36415; 71046; 80053; 83735; 84484; 85025; 85610; 85730; 93005

== ENCOUNTER 2022-03-23 10:28 | Day surgery (SDC) | payer MEDICARE ==
[~2022-03-23 10:28] MED LIST: DESMOPRESSIN ACETATE 0.3 MCG in SODIUM CHLORIDE 0.9% 50 ML IVPB ONE; DESMOPRESSIN ACETATE 17 MCG in SODIUM CHLORIDE 0.9% 50 ML IVPB ONE; SODIUM CHLORIDE 0.9% 1,000 ML IV SCH; ceFAZolin 1 GM in SODIUM CHLORIDE 0.9% IRRIG BTL 250 ML IRRIGATION PRN
[2022-03-23 10:50] VITALS: TEMP 98.2
[2022-03-23] MEDS ORDERED: SODIUM CHLORIDE 0.9% 500 ML 500 ML IV ONE ×2 (11:17→13:05)
[2022-03-23 12:01] LABS: Basophils % (A) 1 %; Eosinophils # (A) 0.1 k/uL (0-0.7); Eosinophils % (A) 1 %; HCT 43.3 % (34.0-46.0); HGB 13.9 gm/dL (11.4-16.0); Lymphocytes # (A) 0.8 k/uL (1.0-4.8); Lymphocytes % (A) 14 %; MCH 31.4 pg (25.0-35.0); MCHC 32.1 g/dL (31.0-37.0); MCV 97.8 fL (80.0-100.0); Mean Platelet Volume 9.2; Monocytes # (A) 0.3 k/uL (0-1.0); Monocytes % (A) 4 %; Neutrophils # (A) 4.5 k/uL (1.3-7.7); Neutrophils % (A) 78 %; Platelet Count 109 k/uL (150-450); RBC 4.43 m/uL (3.80-5.40); RDW 13.1 % (11.5-15.5); WBC 5.8 k/uL (3.8-10.6)
[2022-03-23 12:06] LABS: African American GFR (CKD) >90 (>60 ml/min/1.73 sqM); Anion Gap 10 mmol/L; Blood Urea Nitrogen 17 mg/dL (7-17); Calcium 9.4 mg/dL (8.4-10.2); Carbon Dioxide 27 mmol/L (22-30); Chloride 103 mmol/L (98-107); Glucose 111 mg/dL (74-99); Non-African American GFR(CKD) 78 (>60 ml/min/1.73 sqM); Potassium 3.9 mmol/L (3.5-5.1); Sodium 140 mmol/L (137-145)
[2022-03-23] MEDS ORDERED: MIDAZOLAM 2 MG/2 ML VIAL IVP ONE (13:28)
[2022-03-23] MEDS ORDERED: LIDOCAINE 1% INJ 10MG/ML (30 ML VIAL-PF) SQ ONE (13:36)
[2022-03-23] MEDS ORDERED: fentaNYL (PF) 50 MCG/ML 2 ML AMP ONE (13:48)
[2022-03-23] MEDS: LIDOCAINE 1% INJ 10MG/ML (30 ML VIAL-PF) SQ ONE ×2 (13:48→13:58)
[2022-03-23] MEDS: fentaNYL (PF) 50 MCG/ML 2 ML AMP IVP ONE ×2 (13:50→13:58)
[2022-03-23 16:24] VITALS: BP 104/57; PULSE 60
[2022-03-23 17:00] VITALS: RESP 18
--- NOTE | 2022-03-24 02:18 | PCN ---
PROCEDURE NOTE PROCEDURES: 1. Transvenous temporary pacemaker from right femoral venous approach. 2. Pulse generator explantation of an existing old pacemaker. 3. Implantation of new pulse generator in the old pocket of a dual-chamber pacemaker. ANESTHESIA: Moderate conscious sedation time 43 minutes. Patient was administered Versed. Oxygen saturation, hemodynamics, and EKG were monitored closely. CLINICAL INFORMATION: Ms. Belkys Woo is a 76-year-old lady with a known history of CAD, previous LAD PCI in 2013. She also has sick sinus syndrome and persistent atrial fibrillation for which she had AV node ablation with a dual-chamber pacemaker. However, the pacemaker has reached end of life and was brought in electively for a generator change. The patient is pacemaker dependent. She is in chronic atrial fibrillation and therefore, the atrial lead is not capturing and also not sensing. However, under the circumstances, she would only use the ventricular lead. She also has Von Willebrand bleeding disorder and was appropriately pre-treated with DDVAP. PROCEDURE NOTE: Under strict aseptic precautions and local anesthesia, a 6-Spanish introducer was placed in the right femoral vein. A transvenous balloon-tipped 5-Spanish pacemaker was placed at right ventricular apex. The threshold was 0.3 mV. The patient's temporary pacemaker was set at a back-up rate of 40 and mA of 5.0. I then unscrubbed and started the pulse generator change. Under local anesthesia and strict aseptic precautions, an incision was made over the existing pacemaker in a linear fashion. Blunt dissection and cautery were performed, and the old pulse generator was taken out. The lead was disconnected. Patient was on a backup temporary pacemaker at a rate of 70. The new pulse generator was used, and the old ventricular lead was placed into it after checking the thresholds and sensitivities. The atrial lead was also taken out from the old generator and put in the new generator. The new generator was checked for a position under fluoroscopy. The new generator was put in the old pocket, and the wound was closed in 2 layers. The patient received intravenous antibiotic as the procedure began. The patient's wound site was also irrigated with antibiotic solution. The wound was closed in 2 layers with a 3.0 and 2.0 Vicryl. Excellent hemostasis was secured. The details were discussed with the patient and her [id number]. PACEMAKER INFORMATION: The pulse generator implanted today, ordnance technician is [employer]ilia [email or web address], model L301 Maggy [email or web address]. The ventricular lead was the old lead that was placed in April 2015. Guidant is the ordnance technician, model 4136 Dextrus IS1 bipolar active lead, serial #[id number]. The atrial lead used was the same old lead, ordnance technician Guidant, model 4135 Dextrus IS1, active lead, model 4135, serial #[id number]. The ventricular lead threshold was 0.9 V at 0.4 milliseconds. Impedance was 432 ohms. The pacemaker was set in a VVIR mode with a back-up rate of 60 and high rate of 110. Patient tolerated the procedure well without complication. Details were discussed with the patient and family, and I expect she will be discharged in the next 2 to 3 hours. The temporary pacemaker was taken out and venous sheath pulled and hemostasis secured. MMODL / IJN: [id number] /
== END 2022-03-23 17:04 | disposition home or self-care (01) ==
LOC: CATHEP 10:28
PROVIDERS: ATTEND Internal Medicine Interventional Cardiology
DX: T82.118A Breakdown (mechanical) of other cardiac electronic device, initial encounter (principal); I25.10 Atherosclerotic heart disease of native coronary artery without angina pectoris; D68.0 Von Willebrand disease; I48.91 Unspecified atrial fibrillation; I44.2 Atrioventricular block, complete; Z79.82 Long term (current) use of aspirin; Z79.899 Other long term (current) drug therapy; Z79.891 Long term (current) use of opiate analgesic; Z88.6 Allergy status to analgesic agent; Z88.2 Allergy status to sulfonamides; Z20.822 Contact with and (suspected) exposure to COVID-19
CPT/HCPCS: 33228; 80048; 85025; 87635; C1894; C1769 ×2; J2250; J0690; J2001; J3010; J2597

== ENCOUNTER → 2023-02-25 | Outpatient (CLI) | payer MEDICARE ==
--- NOTE | 2023-02-25 11:48 | CT ---
EXAMINATION TYPE: CT sinus wo con DATE OF EXAM: 02/25/2023 COMPARISON: None available. HISTORY: SINISITUS CT DLP: 660.8 mGycm. Automated Exposure Control for Dose Reduction was Utilized. TECHNIQUE: CT scan of the sinuses is performed without contrast, axial images are obtained, coronal r eformatted images are also reviewed. FINDINGS: The paranasal sinuses including the frontal, ethmoid, sphenoid, and maxillary sinuses bila terally are well-aerated without abnormal opacification. The ostiomeatal complex is patent bilateral ly on the coronal images. Visualized portion of mastoid air cells show no abnormal opacification. The globes are intact bilate rally. IMPRESSION: The sinuses are clear and the ostiomeatal complex is patent bilaterally.
== END | disposition home or self-care (01) ==
LOC: RADCTMAIN 10:53
PROVIDERS: ATTEND Otolaryngology
DX: J32.0 Chronic maxillary sinusitis (principal)
CPT/HCPCS: 70486

== ENCOUNTER → 2023-04-17 | Outpatient (CLI) | payer MEDICARE ==
--- NOTE | 2023-04-17 11:58 | FL ---
EXAMINATION TYPE: FL barium swallow DATE OF EXAM: 04/17/2023 11:49 AM COMPARISON: None CLINICAL INDICATION:Female, 77 years old with history of R13.19 OTHER DYSPHAGIA; PH, TECHNIQUE: The procedure was explained and patient history elicited. All patient questions were ans wered prior to start of procedure. Multiple spot fluoroscopic images of the esophagus were obtained a fter the oral ingestion of effervescent crystals and liquid barium as the contrast agent. Fluoroscopic time: 29 seconds Fluoroscopic images: 170 Total DAP: 953.45 mGycm FINDINGS: The esophagus demonstrates normal primary and secondary peristalsis. The esophageal mucosa is smooth without evidence of focal stricture, ulceration, or abnormal outpouching. No gastroesophageal reflu x disease was identified. IMPRESSION: Normal esophagram.
== END | disposition home or self-care (01) ==
LOC: RADUSWWP 10:56
PROVIDERS: ATTEND Otolaryngology
DX: R13.19 Other dysphagia (principal)
CPT/HCPCS: 74220